=== PATIENT | female | born 1970 | race Two or more races ===

== ENCOUNTER 2020-03-08 08:33 | Day surgery (SDC) | payer BC, OTHER ==
[~2020-03-08] VITALS: Ht 160 cm; Wt 73.5 kg
[~2020-03-08 08:33] MED LIST: CHOL10002 PO; HYDR-4353 PO; IBUP-1986 PO
[2020-03-08] MEDS ORDERED: HYDR-4383 PO (09:28)
[2020-03-08] MEDS ORDERED: NAPR220T67 PO (09:28)
[2020-03-08] MEDS ORDERED: LIDO5CRE2 TP (09:28)
[2020-03-08] MEDS ORDERED: GABA300C PO (09:28)
[2020-03-08 09:38] VITALS: BP 158/106
[2020-03-08 10:09] VITALS: BP 159/120
[2020-03-08 10:25] VITALS: BP 149/109
== END 2020-03-08 10:40 | disposition home or self-care (01) ==
LOC: SSTAY O 08:33
PROVIDERS: ATTEND Radiology Vascular & Interventional Radiology
DX: R59.0 Localized enlarged lymph nodes (principal); C77.0 Secondary and unspecified malignant neoplasm of lymph nodes of head, face and neck; Z98.51 Tubal ligation status; Z90.710 Acquired absence of both cervix and uterus; F17.290 Nicotine dependence, other tobacco product, uncomplicated; Z79.899 Other long term (current) drug therapy; Z85.42 Personal history of malignant neoplasm of other parts of uterus
CPT/HCPCS: 38505; 76942

== ENCOUNTER 2021-06-23 06:02 | Day surgery (SDC) | payer BC, OTHER ==
[2021-06-16 11:42] LABS: BASOPHILS % (AUTO) 0.6 % (0-1); EOSINOPHILS # (AUTO) 0.3 X10'3 (0-0.9); EOSINOPHILS % (AUTO) 4.7 % (0-6); LYMPHOCYTES # (AUTO) 1.2 X10'3 (1.1-4.8); LYMPHOCYTES % (AUTO) 19.8 % (21-51); MEAN CORPUSCULAR HEMOGLOBIN 27.9 PG (27.0-31.0); MEAN CORPUSCULAR HGB CONC 32.1 g/dL (33.0-36.5); MEAN CORPUSCULAR VOLUME 86.9 FL (78-98); MEAN PLATELET VOLUME 7.9 FL (7.4-10.4); MONOCYTES # (AUTO) 0.4 X10'3 (0-0.9); MONOCYTES % (AUTO) 7.2 % (2-12); NEUTROPHILS # (AUTO) 4.1 X10'3 (1.8-7.7); NEUTROPHILS % (AUTO) 67.7 % (42-75); PRE OP HEMATOCRIT 37.9 % (35.0-45.0); PRE OP HEMOGLOBIN 12.1 g/dL (12.0-16.0); PRE OP PLATELET COUNT 267 X10'3 (140-440); RED BLOOD COUNT 4.36 X10'6 (4.20-5.60); RED CELL DISTRIBUTION WIDTH 25.2 % (11.5-14.5)
[2021-06-16 12:02] LABS: ANISOCYTOSIS 3+; PLATELET ESTIMATE NORMAL
[2021-06-16 12:03] LABS: HYPOCHROMASIA 1+
[2021-06-16 12:07] LABS: ALBUMIN/GLOBULIN RATIO 0.6 (1.1-1.5); ALKALINE PHOSPHATASE 115 IU/L (46-116); BLOOD UREA NITROGEN 9 MG/DL (7-18); BUN/CREATININE RATIO 9.8 (6.6-38.0); CALCIUM 8.8 MG/DL (8.5-10.1); CHLORIDE 103 MMOL/L (99-107); CREATININE 0.92 MG/DL (0.40-0.90); PRE OP ALT 12 U/L (30-65); PRE OP ANION GAP 8 (8-16); PRE OP AST 13 U/L (10-37); PRE OP BILIRUB, TOTAL 0.3 MG/DL (0.0-1.0); PRE OP GLUCOSE 77 MG/DL (70-104); PRE OP POTASSIUM 3.5 MMOL/L (3.4-5.1); PRE OP SODIUM 139 MMOL/L (135-145); TOTAL CARBON DIOXIDE 28.5 MMOL/L (24-32); TOTAL PROTEIN 8.2 G/DL (6.4-8.2); eGFR 65 ML/MIN
[~2021-06-23] VITALS: Ht 160 cm; Wt 69.9 kg
[~2021-06-23 06:02] MED LIST changes: -CHOL10002 PO; +GABA300C PO; +GABA600T13 PO; -HYDR-4353 PO; -IBUP-1986 PO; +LEVO500T90 PO; +METH-603 PO; +OXYC-658 PO; +albuterol 2.5 MG/3 ML nebule NEB ONE; +cefazolin/dext.iso 2gm/50ml IV ONE; +famotidine 20mg tablet PO ONE; +ringers solution, lacted 1,000 ML IV SCH
[2021-06-23] MEDS ORDERED: BUPIVAcaine/PF 2.5 mg/ml (0.25%) 30ml vial ONE (06:43)
[2021-06-23] MEDS ORDERED: fentaNYL/PF 50MCG/1 ML 2ML syringe ONE (08:09)
[2021-06-23] MEDS ORDERED: midazolam 1 mg/ML 2ml injection ONE (08:09)
[2021-06-23] MEDS ORDERED: ketamine 50mg/5ml syringe ONE (08:09)
[2021-06-23] MEDS ORDERED: LIDOcaine 1%/PF 5ML 10 MG/ML VIAL ONE (08:40)
[2021-06-23] MEDS ORDERED: propofol inj 20 ML IV ONE (08:40)
[2021-06-23 09:07] VITALS: BP 148/92
--- NOTE | 2021-06-23 09:07 | NUR ---
Received from OR via [facility], accompanied by Anesthesiologist DR. BROWN and report given by Anesthesiolgist. 20G PIV TO RIGHT HAND. VSS, SLIGHT SINUS RAJENDRA. DRESSING TO LEFT ARM CDI. PATIENT ON RA.
[2021-06-23 09:17] VITALS: BP 133/87
[2021-06-23 09:27] VITALS: BP 142/89
[2021-06-23 09:37] VITALS: BP 149/94
--- NOTE | 2021-06-23 09:47 | NUR ---
PATIENT GIVEN DISCHARGE INSTRUCTIONS AND INFORMED TO MAKE A FOLLOW UP APPOINTMENT WITH DR. BARILLAS. 20G PIV REMOVED. PATIENT DRINKING WATER AND EATING CRACKERS. UNDERSTOOD ALL INSTRUCTIONS. BELONGINGS ALL ACCOUNTED FOR. DISCHARGED HOME WITH JAZZY NOGUERA.
[2021-06-23 10:06] VITALS: BP 122/82
[2021-06-23 10:07] VITALS: BP 122/82
== END 2021-06-23 09:47 | disposition home or self-care (01) ==
LOC: PAS 06:02
PROVIDERS: ATTEND Orthopaedic Surgery Hand Surgery
DX: M86.632 Other chronic osteomyelitis, left radius and ulna (principal); F43.10 Post-traumatic stress disorder, unspecified; F17.210 Nicotine dependence, cigarettes, uncomplicated; Z79.899 Other long term (current) drug therapy; Z85.118 Personal history of other malignant neoplasm of bronchus and lung; Z90.710 Acquired absence of both cervix and uterus; Z85.42 Personal history of malignant neoplasm of other parts of uterus; Z98.890 Other specified postprocedural states; Z98.51 Tubal ligation status; Z20.822 Contact with and (suspected) exposure to COVID-19
CPT/HCPCS: 24138; 36415; 71046; 80053; 82948; 85025; 87070; 87075; 93005; J0690; J2250; J2704; J3010; J3490; J7030; J7120; U0003; U0005; Z7506; Z7512; 85008; A4215; A4618; A6446; A6449; A7000